=== PATIENT | female | born 1990 | race Caucasian/White ===

== ENCOUNTER 2024-11-03 05:44 | Emergency (ER) | payer BC, SELFPAY ==
[2024-11-03 06:01] VITALS: BP 120/82
[2024-11-03 06:27] VITALS: BMI 33.1
[2024-11-03 07:16] LABS: % Basophils 0.6 % (0-2); % Immature Granulocytes 0.5 % (0-0.5); % Lymphocytes 13.3 % (20.5-51.1); % Monocytes 7.7 % (1.7-9.3); % Neutrophils 76.9 % (42.2-75.2); Absolute Basophils 0.1 10^3/uL (0-0.2); Absolute Eosinophils 0.2 10^3/uL (0-0.7); Absolute Immature Granulocytes 0.1 10^3/uL (0-0.05); Absolute Lymphocytes 2.1 10^3/uL (1.2-3.4); Absolute Monocytes 1.2 10^3/uL (0.1-0.6); Hematocrit 36.6 % (37.0-47.0); Hemoglobin 12.6 g/dL (12.0-16.0); Mean Corp Hgb Conc. 34.4 g/dL (33.0-37.0); Mean Corpuscular Hgb 32.5 pg (27.0-31.0); Mean Corpuscular Volume 94.3 fL (81.0-99.0); Mean Platelet Volume 10.3 fL (7.4-10.4); Nucleated Red Blood Cells % 0 %; Platelet Count 355 10^3/uL (130-400); Red Blood Cell Count 3.88 10^6/uL (4.20-5.40); Red Cell Dist. Width 11.6 % (11.5-14.5); White Blood Cell Count 15.6 10^3/uL (4.8-10.8)
[2024-11-03 07:37] LABS: ALT (SGPT) 45 U/L (0-35); AST (SGOT) 27 U/L (14-36); Albumin 4.1 g/dl (3.5-5.0); Alkaline Phosphatase 87 U/L (38-126); Blood Urea Nitrogen 9 mg/dl (7-17); Calcium 9.5 mg/dl (8.4-10.2); Carbon Dioxide 20 mmol/L (22-30); Chloride 108 mmol/L (98-107); Estimated Creatinine Clearance 102 ml/min; Glucose 132 mg/dl (70-99); Potassium 4.4 mmol/L (3.5-5.1); Sodium 138 mmol/L (135-145); Total Bilirubin 0.5 mg/dl (0.2-1.3); Total Protein 6.9 g/dl (6.3-8.2); eGFR > 60.00
[2024-11-03 08:01] LABS: Beta HCG Quantitative 819.83 mIU/ml
--- NOTE | 2024-11-03 08:46 | ED.GENMED ---
History of Present Illness
General
Chief Complaint: Problems
Time Seen by Provider: 11/03/24 07:33
History of Present Illness
History of Present Illness:
34-year-old female presents emergency department due to abdominal cramping and vaginal bleeding. She is undergoing fertility treatments and then following up with her fertility specialist yesterday was noted to have a gestational sac without a
pole and gestational dating was not aligning with her ultrasound anatomy thus was administered misoprostol for abortive therapy. Since last night she has had intense abdominal cramping and heavy bleeding. She is concerned about the volume of
bleeding being significantly more than a typical menstrual cycle. She is not on blood thinners
Review of Systems
Review of Systems
Allergies reviewed?: Yes
All Other Systems: ROS reviewed and negative except as documented in HPI and ROS
Phy Exam
Physical Exam
Physical Exam:
GEN: Well appearing, NAD, WDWN
HEENT: Oral mucosa moist, no scleral icterus
Cardiac: Regular rate
Lung: No respiratory distress, no tachypnea
: ERIC Funk at the bedside during exam, moderate blood in the vaginal vault, cleared with gauze, scant active bleeding from the cervix, cervix is closed
MSK: No gross deformity or injuries
Skin: Good color, no pallor or jaundice, no rashes
Neuro: AO x3, moves all extremities freely
Psych: Calm, cooperative
Course
Orders/Labs/Results
Orders:
Orders
11/03/24 06:56
Complete Blood Count/With Diff Urgent
Comment: .
Comprehensive Metabolic Panel Urgent
Comment: .
HCG, Beta Quantitative [Beta HCG Quantitative] Urgent
Is this a screen?: No
Comment: 5 weeks possible therapuetic
11/03/24 06:59
US 1st Trimester Urgent
Comment: severe abd cramping
Reason For Exam: 5 wks preg taking cytotec for non viable preg
Abnormal Lab Results
11/03/24
06:56
WBC 15.6 H 10^3/uL
(4.8-10.8)
RBC 3.88 L 10^6/uL
(4.20-5.40)
Hct 36.6 L %
(37.0-47.0)
MCH 32.5 H pg
(27.0-31.0)
Abs Immat Gran (auto) 0.1 H 10^3/uL
(0-0.05)
Absolute Neuts (auto) 12.0 H 10^3/uL
(1.4-6.5)
Absolute Monos (auto) 1.2 H 10^3/uL
(0.1-0.6)
Neutrophils % 76.9 H %
(42.2-75.2)
Lymphocytes % 13.3 L %
(20.5-51.1)
Chloride 108 H mmol/L
(98-107)
Carbon Dioxide 20 L mmol/L
(22-30)
Glucose 132 H mg/dl
(70-99)
ALT 45 H U/L
(0-35)
11/03/24 06:56
11/03/24 06:56
Vital Signs
Initial and Last Documented VS:
Initial Vital Signs
Temp Pulse Resp BP Pulse Ox
99.1 F 92 20 120/82 98
11/03/24 06:01 11/03/24 06:01 11/03/24 06:01 11/03/24 06:01 11/03/24 06:01
Last Documented Vital Signs
Temp Pulse Resp BP Pulse Ox
99.1 F 92 20 120/82 98
11/03/24 06:01 11/03/24 06:01 11/03/24 06:01 11/03/24 06:01 11/03/24 06:29
Information
Weeks gestation: N/A
Location: N/A
MDM/Problems Addressed
MDM/Problems Addressed:
Hemoglobin stable, no intrauterine parts noted on ultrasound. Cervix is closed and bleeding is not substantial at this time thus likely miscarriage has completed. She is suitable for discharge, will follow-up as an outpatient with her [employer]
*Critical Care Note
Total Time (30-74mins, 75-104mins- exclusive of procedures): Not Applicable
ED Attending Note
-
Portions of this chart may have been created with voice recognition software.� Occasional wrong word or��sound alike� substitutions may have occurred due to the inherent limitations of voice recognition software.
Discharge Plan
Departure
Patient Disposition: Home (Routine Discharge)
Date of Disposition: 11/03/24
Time of Disposition: 08:46
Patient with high blood pressure during this ER visit?: No
Discharge Problem:
Complete miscarriage
Instructions: Miscarriage (DC)
Referrals:
NONE,* [Family Provider] -
Activity Restrictions/Additional Instructions:
Call your OBGYN if bleeding worsens
Interventions
Interventions:
*Risk Screen - Suicide Last Done: 11/03/24 06:01
*General Assessment Last Done: 11/03/24 06:01
*Neglect/Abuse Screening Last Done: 11/03/24 06:01
*ED- Fall Risk Assessment Last Done: 11/03/24 06:01
*ED COVID-19 Vaccine History Last Done: 11/03/24 06:01
*Nursing Disposition Last Done: 11/03/24 09:20
ED-Female Genitourinary Assessment Last Done: 11/03/24 06:29
Discharge Date and Time
Discharge Date/Time: 11/03/24 09:20
Print Language: FRENCH
== END 2024-11-03 09:20 | disposition home or self-care (01) ==
LOC: EMR 05:44
PROVIDERS: Student in an Organized Health Care Education/Training Program; EMERGENCY PHYSICIAN Emergency Medicine
DX: O03.9 Complete or unspecified spontaneous abortion without complication (principal)
CPT/HCPCS: 99284; 76801; 80053; 84702; 85025